=== PATIENT | male | born 1935 | race African-American/Black ===

== ENCOUNTER 2018-03-16 14:26 | Inpatient (IN) | payer OTHER ==
[2018-03-16 15:40] LABS: ADD MAN DIFF? NO
[2018-03-16 15:41] LABS: BASO % 1 % (0-3); EOS % 1 % (0-3); HEMATOCRIT 31.4 % (39.0-53.0); LYMPH # 0.7 x10^3/uL (1.0-4.8); LYMPH % 10 % (24-48); MEAN CORPUSCULAR HEMOGLOBIN 23 pg (25-35); MEAN CORPUSCULAR HGB CONC 32 g/dL (31-37); MEAN CORPUSCULAR VOLUME 72 fL (79-100); MONO # 0.5 x10^3/uL (0.0-1.1); MONO % 9 % (0-9); NEUT # 5.1 x10^3uL (1.8-7.7); NEUT % 80 % (31-73); PLATELET COUNT 302 x10^3/uL (140-400); RED BLOOD COUNT 4.38 x10^6/uL (4.30-5.70); RED CELL DISTRIBUTION WIDTH 17.6 % (11.5-14.5); WHITE BLOOD COUNT 6.3 x10^3/uL (4.0-11.0)
[2018-03-16 15:57] LABS: INR 1.2 (0.8-1.1); PROTHROMBIN TIME PATIENT 14.5 SEC (11.7-14.0)
[2018-03-16] MEDS: IV NORMAL SALINE 500ML BAG 500 ML IV (16:00)
[2018-03-16 17:06] LABS: ANION GAP 15 (6-14); BLOOD UREA NITROGEN 39 mg/dL (8-26); BUN/CREATININE RATIO 35 (6-20); CALCIUM 9.4 mg/dL (8.5-10.1); CARBON DIOXIDE 18 mmol/L (21-32); CHLORIDE 101 mmol/L (98-107); CREATININE 1.1 mg/dL (0.7-1.3); GFR 77.7; GLUCOSE 100 mg/dL (70-99); POTASSIUM 4.6 mmol/L (3.5-5.1); SODIUM 134 mmol/L (136-145)
[2018-03-16 17:11] LABS: ALBUMIN 2.4 g/dL (3.4-5.0); ALBUMIN/GLOBULIN RATIO 0.6 (1.0-1.7); ALK PHOS 53 U/L (46-116); ALT (SGPT) 9 U/L (16-63); AST (SGOT) 24 U/L (15-37); LIPASE 481 U/L (73-393); TOTAL BILIRUBIN 0.3 mg/dL (0.2-1.0); TOTAL PROTEIN 6.6 g/dL (6.4-8.2)
[2018-03-16 17:20] LABS: TROPONINI < 0.017 ng/mL (0.000-0.055)
[2018-03-16] MEDS: PIPERACILLIN/TAZOBACTAM 3.375 GM in IV NORMAL SALINE 50ML 50 ML IV (17:33)
[2018-03-16 17:50] LABS: LACTIC ACID 1.9 mmol/L (0.4-2.0)
[2018-03-16] MEDS: VANCOMYCIN 1.25 GM in IV DEXTROSE 5 %-0.2 % NACL 250 ML IV (18:03)
[2018-03-16 18:14] LABS: PLT ESTIMATE INCREASED (ADEQUATE)
[2018-03-16 18:15] LABS: CRENATED RBC PRESENT; HYPOCHROMIA MOD; POLYCHROMASIA SLIGHT; SCHISTOCYTES OCC
[2018-03-16] MEDS: IV NORMAL SALINE 1000ML BAG 1,000 ML IV ×4 (18:18→20:48)
[2018-03-16] MEDS: VANCOMYCIN PER PHARMACY MC (20:11)
[2018-03-16] MEDS: ENOXAPARIN 40 MG/0.4 ML SYRINGE. SQ (21:10)
[2018-03-17 03:24] LABS: ADD MAN DIFF? NO
[2018-03-17 03:34] LABS: BASO # 0.1 x10^3/uL (0.0-0.2); BASO % 1 % (0-3); EOS # 0.1 x10^3/uL (0.0-0.7); EOS % 1 % (0-3); HEMATOCRIT 29.5 % (39.0-53.0); HEMOGLOBIN 9.3 g/dL (13.0-17.5); LYMPH # 0.8 x10^3/uL (1.0-4.8); LYMPH % 14 % (24-48); MEAN CORPUSCULAR HEMOGLOBIN 23 pg (25-35); MEAN CORPUSCULAR HGB CONC 32 g/dL (31-37); MEAN CORPUSCULAR VOLUME 71 fL (79-100); MONO # 0.5 x10^3/uL (0.0-1.1); MONO % 9 % (0-9); NEUT # 4.4 x10^3uL (1.8-7.7); NEUT % 75 % (31-73); PLATELET COUNT 264 x10^3/uL (140-400); RED BLOOD COUNT 4.16 x10^6/uL (4.30-5.70); RED CELL DISTRIBUTION WIDTH 17.3 % (11.5-14.5); WHITE BLOOD COUNT 5.9 x10^3/uL (4.0-11.0)
[2018-03-17 04:01] LABS: ALBUMIN 2.1 g/dL (3.4-5.0); ALBUMIN/GLOBULIN RATIO 0.5 (1.0-1.7); ALK PHOS 48 U/L (46-116); ALT (SGPT) 7 U/L (16-63); ANION GAP 10 (6-14); AST (SGOT) 23 U/L (15-37); BLOOD UREA NITROGEN 31 mg/dL (8-26); BUN/CREATININE RATIO 31 (6-20); CALCIUM 8.7 mg/dL (8.5-10.1); CARBON DIOXIDE 22 mmol/L (21-32); CHLORIDE 106 mmol/L (98-107); GFR 86.8; GLUCOSE 84 mg/dL (70-99); POTASSIUM 4.3 mmol/L (3.5-5.1); SODIUM 138 mmol/L (136-145); TOTAL BILIRUBIN 0.3 mg/dL (0.2-1.0); TOTAL PROTEIN 6.1 g/dL (6.4-8.2)
[2018-03-17 04:13] LABS: BILIRUBIN,URINE SMALL (NEG); CLARITY,URINE CLEAR; COLOR,URINE YELLOW; GLUCOSE,URINE NEGATIVE (NEG); NITRITE,URINE NEGATIVE (NEG); PH,URINE 5.5; PROTEIN,URINE NEGATIVE (NEG-TRACE)
[2018-03-17 04:31] LABS: BACTERIA,URINE MANY /HPF (0-FEW); HYALINE CASTS, URINE MODERATE /HPF; SQUAMOUS EPITHELIAL CELL,UR FEW /LPF; WBC,URINE OCC /HPF (0-4)
[2018-03-17] MEDS: IV NORMAL SALINE 1000ML BAG 1,000 ML IV ×7 (08:00→22:07)
[2018-03-17] MEDS: VANCOMYCIN PER PHARMACY MC (12:52)
[2018-03-17] MEDS: PIPERACILLIN/TAZOBACTAM 3.375 GM in IV NORMAL SALINE 50ML 50 ML IV ×2 (16:17→23:37)
[2018-03-17] MEDS ORDERED: VANCOMYCIN 750 MG in IV NORMAL SALINE 250ML 250 ML IV (18:00)
[2018-03-17] MEDS: ENOXAPARIN 40 MG/0.4 ML SYRINGE. SQ (20:28)
[2018-03-17] MEDS: LACTOBACILLUS RHAMNOSUS GG 1 CAPSULE. PO (20:28)
[2018-03-17] MEDS: LINEZOLID 600 MG TABLET PO (20:28)
[2018-03-18] MEDS: PIPERACILLIN/TAZOBACTAM 3.375 GM in IV NORMAL SALINE 50ML 50 ML IV ×4 (05:33→23:38)
[2018-03-18] MEDS: LINEZOLID 600 MG TABLET PO ×2 (09:44→20:30)
[2018-03-18] MEDS: LACTOBACILLUS RHAMNOSUS GG 1 CAPSULE. PO ×2 (09:44→20:29)
[2018-03-18] MEDS: IV NORMAL SALINE 1000ML BAG 1,000 ML IV (12:58)
[2018-03-18] MEDS: ENOXAPARIN 40 MG/0.4 ML SYRINGE. SQ (20:30)
[2018-03-19] MEDS: PIPERACILLIN/TAZOBACTAM 3.375 GM in IV NORMAL SALINE 50ML 50 ML IV ×4 (05:24→23:49)
[2018-03-19] MEDS: IV NORMAL SALINE 1000ML BAG 1,000 ML IV ×2 (05:25→20:53)
[2018-03-19] MEDS: LACTOBACILLUS RHAMNOSUS GG 1 CAPSULE. PO ×2 (10:02→20:49)
[2018-03-19] MEDS: LINEZOLID 600 MG TABLET PO ×2 (10:02→20:48)
[2018-03-19] MEDS: ENOXAPARIN 40 MG/0.4 ML SYRINGE. SQ (20:49)
[2018-03-20 04:46] LABS: ADD MAN DIFF? NO
[2018-03-20 05:01] LABS: BASO # 0.1 x10^3/uL (0.0-0.2); BASO % 1 % (0-3); EOS # 0.1 x10^3/uL (0.0-0.7); EOS % 2 % (0-3); HEMATOCRIT 29.2 % (39.0-53.0); HEMOGLOBIN 9.4 g/dL (13.0-17.5); LYMPH # 0.8 x10^3/uL (1.0-4.8); LYMPH % 14 % (24-48); MEAN CORPUSCULAR HEMOGLOBIN 23 pg (25-35); MEAN CORPUSCULAR HGB CONC 32 g/dL (31-37); MEAN CORPUSCULAR VOLUME 72 fL (79-100); MONO # 0.6 x10^3/uL (0.0-1.1); MONO % 10 % (0-9); NEUT % 73 % (31-73); PLATELET COUNT 230 x10^3/uL (140-400); RED BLOOD COUNT 4.07 x10^6/uL (4.30-5.70); RED CELL DISTRIBUTION WIDTH 17.8 % (11.5-14.5); WHITE BLOOD COUNT 5.5 x10^3/uL (4.0-11.0)
[2018-03-20] MEDS: PIPERACILLIN/TAZOBACTAM 3.375 GM in IV NORMAL SALINE 50ML 50 ML IV ×3 (05:51→17:54)
[2018-03-20 06:03] LABS: ALBUMIN 1.4 g/dL (3.4-5.0); ALBUMIN/GLOBULIN RATIO 0.4 (1.0-1.7); ALK PHOS 46 U/L (46-116); ALT (SGPT) 7 U/L (16-63); ANION GAP 11 (6-14); AST (SGOT) 20 U/L (15-37); BLOOD UREA NITROGEN 10 mg/dL (8-26); BUN/CREATININE RATIO 14 (6-20); CALCIUM 7.8 mg/dL (8.5-10.1); CARBON DIOXIDE 20 mmol/L (21-32); CHLORIDE 109 mmol/L (98-107); CREATININE 0.7 mg/dL (0.7-1.3); GLUCOSE 81 mg/dL (70-99); POTASSIUM 3.3 mmol/L (3.5-5.1); SODIUM 140 mmol/L (136-145); TOTAL BILIRUBIN 0.3 mg/dL (0.2-1.0); TOTAL PROTEIN 5.1 g/dL (6.4-8.2)
[2018-03-20] MEDS ORDERED: ONDANSETRON ODT 4 MG TAB.RAPDIS. PO (08:00)
[2018-03-20] MEDS ORDERED: ACETAMINOPHEN 500 MG TABLET PO (08:00)
[2018-03-20] MEDS ORDERED: ACETAMINOPHEN/CODEINE 300/30MG TABLET. PO (08:00)
[2018-03-20] MEDS ORDERED: ONDANSETRON PF 4 MG/2 ML VIAL. IV (08:00)
[2018-03-20] MEDS: POTASSIUM CHLORIDE 20 MEQ TABLET.ER. PO (08:14)
[2018-03-20] MEDS: LINEZOLID 600 MG TABLET PO ×2 (08:14→21:28)
[2018-03-20] MEDS: LACTOBACILLUS RHAMNOSUS GG 1 CAPSULE. PO ×2 (08:14→21:28)
[2018-03-20] MEDS: IV NORMAL SALINE 1000ML BAG 1,000 ML IV (16:16)
[2018-03-20] MEDS: ENOXAPARIN 40 MG/0.4 ML SYRINGE. SQ (21:28)
[2018-03-21] MEDS: PIPERACILLIN/TAZOBACTAM 3.375 GM in IV NORMAL SALINE 50ML 50 ML IV ×3 (00:08→11:45)
[2018-03-21] MEDS: IV NORMAL SALINE 1000ML BAG 1,000 ML IV (02:37)
[2018-03-21] MEDS: LACTOBACILLUS RHAMNOSUS GG 1 CAPSULE. PO ×2 (07:58→20:52)
[2018-03-21] MEDS: LINEZOLID 600 MG TABLET PO ×2 (07:58→20:52)
[2018-03-21] MEDS: IPRATRPIUM/ALBUTEROL 0.5/2.5MG 3 ML NEBU. NEB ×3 (12:45→19:33)
[2018-03-21] MEDS: AMOXICILLIN/K CLAV 875/125MG TABLET. PO (20:52)
[2018-03-21] MEDS: ENOXAPARIN 40 MG/0.4 ML SYRINGE. SQ (20:52)
[2018-03-22] MEDS: IPRATRPIUM/ALBUTEROL 0.5/2.5MG 3 ML NEBU. NEB ×4 (07:55→21:06)
[2018-03-22] MEDS: LACTOBACILLUS RHAMNOSUS GG 1 CAPSULE. PO ×2 (08:17→21:01)
[2018-03-22] MEDS: AMOXICILLIN/K CLAV 875/125MG TABLET. PO ×2 (08:17→21:01)
[2018-03-22] MEDS: LINEZOLID 600 MG TABLET PO ×2 (08:17→21:01)
[2018-03-22] MEDS: ENOXAPARIN 40 MG/0.4 ML SYRINGE. SQ (21:01)
[2018-03-23] MEDS: IPRATRPIUM/ALBUTEROL 0.5/2.5MG 3 ML NEBU. NEB ×4 (08:14→19:24)
[2018-03-23] MEDS: LACTOBACILLUS RHAMNOSUS GG 1 CAPSULE. PO ×2 (08:32→20:41)
[2018-03-23] MEDS: LINEZOLID 600 MG TABLET PO ×2 (08:33→20:41)
[2018-03-23] MEDS: AMOXICILLIN/K CLAV 875/125MG TABLET. PO ×2 (08:33→20:41)
[2018-03-23] MEDS: ENOXAPARIN 40 MG/0.4 ML SYRINGE. SQ (20:41)
[2018-03-24 04:43] LABS: ADD MAN DIFF? NO
[2018-03-24 04:56] LABS: BASO # 0.1 x10^3/uL (0.0-0.2); BASO % 1 % (0-3); EOS # 0.1 x10^3/uL (0.0-0.7); EOS % 1 % (0-3); HEMATOCRIT 28.3 % (39.0-53.0); LYMPH # 0.8 x10^3/uL (1.0-4.8); LYMPH % 13 % (24-48); MEAN CORPUSCULAR HEMOGLOBIN 23 pg (25-35); MEAN CORPUSCULAR HGB CONC 32 g/dL (31-37); MEAN CORPUSCULAR VOLUME 72 fL (79-100); MONO # 0.4 x10^3/uL (0.0-1.1); MONO % 6 % (0-9); NEUT % 79 % (31-73); PLATELET COUNT 203 x10^3/uL (140-400); RED BLOOD COUNT 3.95 x10^6/uL (4.30-5.70); RED CELL DISTRIBUTION WIDTH 17.7 % (11.5-14.5); WHITE BLOOD COUNT 6.3 x10^3/uL (4.0-11.0)
[2018-03-24 05:10] LABS: ANION GAP 7 (6-14); BLOOD UREA NITROGEN 9 mg/dL (8-26); CARBON DIOXIDE 25 mmol/L (21-32); CHLORIDE 112 mmol/L (98-107); CREATININE 0.7 mg/dL (0.7-1.3); GLUCOSE 80 mg/dL (70-99); POTASSIUM 4.1 mmol/L (3.5-5.1); SODIUM 144 mmol/L (136-145)
[2018-03-24] MEDS: IPRATRPIUM/ALBUTEROL 0.5/2.5MG 3 ML NEBU. NEB ×3 (07:21→16:41)
[2018-03-24] MEDS: LACTOBACILLUS RHAMNOSUS GG 1 CAPSULE. PO (08:08)
[2018-03-24] MEDS: LINEZOLID 600 MG TABLET PO (08:09)
[2018-03-24] MEDS: AMOXICILLIN/K CLAV 875/125MG TABLET. PO (08:09)
== END 2018-03-24 17:39 | DRG 177 ==
LOC: ER 14:26 → 5 NORTH 18:05
DX: J69.0 Pneumonitis due to inhalation of food and vomit (principal); E43 Unspecified severe protein-calorie malnutrition; J44.0 Chronic obstructive pulmonary disease with (acute) lower respiratory infection; R64 Cachexia; C64.2 Malignant neoplasm of left kidney, except renal pelvis; C78.00 Secondary malignant neoplasm of unspecified lung; Z68.1 Body mass index [BMI] 19.9 or less, adult; J15.6 Pneumonia due to other Gram-negative bacteria; J15.8 Pneumonia due to other specified bacteria; Z60.2 Problems related to living alone; E78.5 Hyperlipidemia, unspecified; F17.210 Nicotine dependence, cigarettes, uncomplicated; Z51.5 Encounter for palliative care; D64.9 Anemia, unspecified; Z66 Do not resuscitate; E87.6 Hypokalemia; I73.9 Peripheral vascular disease, unspecified; Z86.73 Personal history of transient ischemic attack (TIA), and cerebral infarction without residual deficits; Z82.49 Family history of ischemic heart disease and other diseases of the circulatory system; Z83.6 Family history of other diseases of the respiratory system
CPT/HCPCS: 36415; 70450; 71045; 71250; 80048; 80053; 81001; 83605; 83690; 84484; 85025; 85610; 87040; 87086; 93005; 94640; 94760; 96361; 96365; 96367; 97116-GP; 97161-GP; 97166-GO; 97530-GP; 99285; 99285-25; 99406; J1650; J2543; J3370; J7030; J7040; J7620